=== PATIENT | female | born 1995 | race Caucasian/White ===

== ENCOUNTER 2021-06-18 15:10 | Outpatient (CLI) | payer OTHER ==
[2021-06-18] MEDS ORDERED: ETHINYL ESTRADIOL PO (15:40)
[2021-06-18] MEDS ORDERED: NORGESTIMATE PO (15:40)
== END 2021-06-18 23:59 | disposition home or self-care (01) ==
LOC: STAR 15:10
PROVIDERS: ATTEND Otolaryngology
DX: Z02.9 Encounter for administrative examinations, unspecified (principal)

== ENCOUNTER 2021-06-23 05:43 | Day surgery (SDC) | payer OTHER ==
[~2021-06-23] VITALS: Ht 160 cm; Wt 54.7 kg
[~2021-06-23 05:43] MED LIST: ETHINYL ESTRADIOL PO; NORGESTIMATE PO
[2021-06-23 06:09] VITALS: BP 132/88
[2021-06-23] MEDS ORDERED: CHLORHEXIDINE 15 ML UDC ONE (06:12)
[2021-06-23 06:13] LABS: HCG UR SG 1.019 (1.003-1.030)
[2021-06-23] MEDS ORDERED: LACTATED RINGERS 1,000 ML IV SCH (06:30)
[2021-06-23] MEDS ORDERED: CHLORHEXIDINE 15 ML UDC PO ONE (06:30)
[2021-06-23] MEDS ORDERED: EPINEPHRINE 1 MG/ML, 1ML ONE (06:49)
[2021-06-23] MEDS ORDERED: EPINEPHRINE TOPICAL SOLN 1 MG/ML, 30ML ONE (06:49)
[2021-06-23] MEDS ORDERED: FLUORESCEIN SODIUM 500 MG/5 ML ONE (06:49)
[2021-06-23] MEDS ORDERED: OXYMETAZOLINE NASAL SPRAY 0.05%,30ML ONE (06:49)
[2021-06-23] MEDS ORDERED: BACITRACIN OINT 500U/GM, 15 GM ONE (06:50)
[2021-06-23] MEDS ORDERED: LIDOCAINE 1%, 20ML ONE (06:50)
[2021-06-23] MEDS ORDERED: PROPOFOL 10 MG/ML, 20ML ONE (07:07)
[2021-06-23] MEDS ORDERED: LIDOCAINE-MPF 2% ,5ML ONE (07:07)
[2021-06-23] MEDS ORDERED: ROCURONIUM 10MG/ML,5ML ONE (07:07)
[2021-06-23] MEDS ORDERED: DEXAMETHASONE 4 MG/ML, 5ML ONE (07:28)
[2021-06-23] MEDS ORDERED: ONDANSETRON 2MG/ML, 2ML ONE (07:28)
[2021-06-23] MEDS ORDERED: ACETAMINOPHEN 325 MG TABLET PO PRN (07:30)
[2021-06-23] MEDS ORDERED: PROMETHAZINE 25 MG/ML, 1ML IVPush PRN (07:30)
[2021-06-23] MEDS ORDERED: OXYcodone 5 MG/5 ML ORAL.SOL UDC PO PRN (07:30)
[2021-06-23] MEDS ORDERED: morphine SULFATE 10 MG/ML, 1ML IVPush PRN (07:30)
[2021-06-23] MEDS ORDERED: FENTANYL PF 100 MCG/2ML IV PRN (07:30)
[2021-06-23] MEDS ORDERED: CEFAZOLIN 1,000 MG ONE (07:56)
[2021-06-23] MEDS ORDERED: SUGAMMADEX 200 MG/2 ML IVPush ONE (08:33)
[2021-06-23] MEDS ORDERED: FENTANYL PF 100 MCG/2ML ONE (08:43)
[2021-06-23] MEDS ORDERED: PROMETHAZINE 25 MG/ML, 1ML ONE (09:13)
== END 2021-06-23 11:10 | disposition home or self-care (01) ==
LOC: OUT 05:43
PROVIDERS: ATTEND Otolaryngology
DX: J34.2 Deviated nasal septum (principal); J34.3 Hypertrophy of nasal turbinates; J31.0 Chronic rhinitis; J34.89 Other specified disorders of nose and nasal sinuses; Z79.899 Other long term (current) drug therapy; Z88.8 Allergy status to other drugs, medicaments and biological substances
CPT/HCPCS: 30140; 30520; 81025; J0171; J0690; J1100; J2405; J2550; J2704; J3010; J7120